=== PATIENT | male | born 1970 | race Caucasian/White ===

== ENCOUNTER 2020-07-20 18:27 | Observation (INO) | payer BC, SELFPAY ==
[2020-07-20] VITALS (22 sets, daily range): BP systolic 123–159; BP diastolic 70–91; PULSE 56–72; RESP 14–26; TEMP 36.2–36.6; O2SAT 95–98
--- NOTE | 2020-07-20 18:30 | RT.EKG_ITS ---
APPROVED REPORT Exam: Resting ECG Patient Location: E HR:61 bpm ECG Measurements Heart Rate 61 AXIS MI 156 P 63 QRSd 102 QRS -69 QT 382 T 48 QTc 385 Conclusion Sinus rhythm...normal P axis, V-rate 60- 99 Probable left atrial enlargement...P >50mS, <-0.10mV V1 LAD, consider left anterior fascicular block...axis(240,-40), S>R II III aVF ST elev, probable normal early repol pattern...ST elevation, age<55
--- NOTE | 2020-07-20 19:21 | ED.GENADUL_ITS ---
Discharge Plan Disposition Patient Disposition: [facility] INPATIENT Condition: Serious Discharge Details Clinical Impression: Paresthesia Primary Care Provider: Valentina Mojica ED Provider: True Perkins Home Meds and New Rx's Prescriptions: No Action No Known Home Meds RF: 0 Medical Decision Making 1928??50-year-old male presents with paresthesias involving his left lower ex tremity, left flank and arm and right thigh over the past 3-1/2 hours. No visual changes recently. No neck or back pain. No rash or known tick bites. Consider electrolyte abnormality. Plan to check labs. Consider tickborne disease and I will send a tick panel. This is unlikely CVA given crossed findings. MRI is not available tonight. I will obtain CT of the head. Patient does have dry mucous membranes he notes that he has been drinking much fluid today. I will give him IV fluid bolus LR 1 L. 2004 --screening ECG was reviewed and interpreted by me: Sinus rhythm 61bpm, normal axis, normal intervals. CT of the head was interpreted by radiology: No evidence for acute transcortical infarct, acute intracranial hemorrhage, or mass-effect. Patient reassessed and continues to have symptoms and now notes more numbness in his right foot. Consider Guillain-Horowitz?. 2011 -- Spoke with Dr. Ling and discussed ED presentation and course. She feels patient should be admitted on telemetry with concern for potential Guillain-Horowitz?. Monitor overnight and she will see the patient in the morning. 2016 -- I spoke with Dr. Francois, on-call hospitalist, discussed ED presentation and course. He will admit the patient. HPI General Mode of arrival: ambulatory . Date/Time Provider Initiated Documentation: 07/20/20 18:43 . Limitations to Documentation: no limitations . Information obtained by: patient . HPI Narrative: 50-year-old male presents with chief complaint of tingling numbness. Patient notes a tingling numbness in bilateral lower extremities left greater than right as well as left flank and left arm. Symptoms started about 3 and half hours ago and have persisted. Symptoms are moderate to severe in his left lower extremity feels like his leg is asleep and mild in his right lower extremity. No modifiers. He has no associated focal weakness. No headache. No visual changes. He has no neck pain or back pain. No fevers. No trauma. Patient does not recall any tick bites. Patient also notes generalized weakness over the past year. Related Data Home Medications Medication Instructions Recorded Confirmed Unknown [No Known Home Meds] 07/20/20 07/20/20 Allergies Allergy/AdvReac Type Severity Reaction Status Date / Time No Known Allergies Allergy Unverified 07/20/20 18:36 General Stated Complaint: CVA/TIA MIKAELA: 2 Review of Systems All systems reviewed & are unremarkable except as noted in HPI and below Constitutional Constitutional: Denies fever(s) Cardiovascular Cardiovascular: Denies chest pain and Denies dyspnea Respiratory Respiratory: Denies dyspnea Gastrointestinal Gastrointestinal: Denies abdominal pain Integumentary/Breasts Skin/Breast: Denies rash Neurologic Neurologic: Reports as per HPI [facility] Social History Smoking/Tobacco Use Status: Former Tobacco Use Alcohol Intake: current Alcohol Intake frequency: a few times a week Drug use: Daily Substance use type: marijuana Do you feel safe at home: Yes Do you feel safe in your relationship?: Yes Exam Const General: cooperative and no acute distress HENMT Head: normocephalic and atraumatic Mouth: moist mucous membranes Eyes Conjunctivae: normal conjunctivae Sclera: normal sclerae EOM: EOM intact bilaterally Neck Neck: trachea midline and supple Resp Auscultation: clear to auscultation bilaterally, no rales, no rhonchi and no wheezes Cardio Rate: regular rate and not tachycardic Rhythm: regular rhythm GI Palpation: soft, not firm, no guarding, no masses, not rigid and nontender Back/Spine/Pelvis Cervical Spine: No cervical spinal tenderness Thoracic/Lumbar Spine: thoracic and lumbar spine normal to inspection, No thoracic spinal tenderness and No lumbar spinal tenderness Skin General skin exam: no rashes or lesions noted Neuro General: patient alert, patient awake, patient oriented x3 and tone normal Cranial Nerves: CN's II-XI intact bilaterally Cognition: normal cognition Speech: speech normal Motor: strength 5/5 throughout Other: Diminished sensation to light touch entire left lower extremity, right thigh, and left arm compared to normal right arm Extrem General: no edema Psych Appearance: grossly normal Mental Status: mental status grossly normal Speech and Movement: speech and movement normal Course Vital Signs Vital signs: Vital Signs Temperature 36.6 C 07/20/20 18:32 Pulse 67 07/20/20 18:32 Respiratory Rate 22 07/20/20 18:32 Blood Pressure 156/87 H 07/20/20 18:32 Pulse Oximetry 98 07/20/20 18:32 Temperature 36.6 C 07/20/20 18:32 Temperature Source Temporal Artery Scan 07/20/20 18:32 Pulse 67 07/20/20 18:32 Respiratory Rate 16 07/20/20 18:41 Respiratory Effort 07/20/20 18:41 Respiratory Depth Normal 07/20/20 18:41 Respiratory Pattern Normal 07/20/20 18:41 Blood Pressure 156/87 H 07/20/20 18:32 Blood Pressure Position Sitting 07/20/20 18:32 Pulse Oximetry 98 07/20/20 18:32 Oxygen Delivery Method Room Air 07/20/20 18:32 Oxygen Flow Rate 0 07/20/20 18:32 Pain Level 8 07/20/20 18:32
[2020-07-20 19:23] LABS: Abs Immature Grans 0.03 10^3/uL (0.0-0.06); Absolute Basophil Count 0.05 10^3/uL (0.0-0.2); Absolute Lymphocyte Count 3.12 10^3/uL (1.2-3.4); Absolute Monocyte Count 0.81 10^3/uL (0.1-0.8); Basophils % 0.5; HCT 43.4 % (40.0-50.0); HGB 14.3 g/dL (13.5-17.5); Immature Grans % 0.3; Lymphocytes % 32.1; MCH 31.4 pg (27.0-33.0); MCHC 32.9 % (32.0-36.0); MCV 95.2 fL (80-95); MPV 9.3 fL (8.0-11.0); Monocytes % 8.3; Neutrophils % 57.8; Nucleated RBC 0 %; Platelet Count 327 10^3/uL (130-400); RBC 4.56 10^6/uL (4.36-5.78); RDW 12.5 % (11.8-14.1); RDW-SD 43.6 fL; WBC 9.71 10^3/uL (4.4-10.8)
--- NOTE | 2020-07-20 19:26 | DI.CT_ITS ---
EXAM: CT HEAD WO CLINICAL HISTORY: lr sided paresthesias, rt thigh paresthesia, 3 hrs. TECHNIQUE: Imaging Protocol: Axial computed tomography images with coronal and sagittal reformatted images were created and reviewed COMPARISON: No exams were available for comparison FINDINGS: Ventricles and Extra axial spaces: Normal in size and morphology for the patient's age. Hemorrhage: None. Cerebral parenchyma: Normal. Midline shift: None. Brainstem/Cerebellum: Normal. Calvarium: Normal. Visualized Paranasal sinuses/Mastoids: Left mastoid air cells are opacified. There is also opacifica tion of the middle ear, around the ossicles. No bony erosions are seen. There are mucous retention cysts versus polyps in the left maxillary sinus. Left medial antrectomy is seen. Soft Tissues: Unremarkable. IMPRESSION: Left maxillary sinus mucous retention cysts versus polyps. Opacified left mastoid air cells and midd le ear could represent cholesteatoma versus sequela otitis media. No acute intracranial process. RADIATION DOSE DELIVERED: 779.6mGy.cm Total DLP DATA REPOSITORY: All CT scans at this facility are submitted to the National Radiology Data Registry (NRDR) Dose Index Registry (DIR) with the [employer] (ACR). RADIATION OPTIMIZATION: All CT scans at this facility use at least one of these dose optimization te chniques: automated exposure control; mA and/or kV adjustment per patient size (includes targeted exa ms where dose is matched to clinical indication); or iterative reconstruction.
[2020-07-20] MEDS: Lactated Ringers 1,000 ML 1000 ML IV (19:33)
[2020-07-20] MEDS: Normal Saline Flush 10 ML SYR IVP (19:34)
[2020-07-20 19:35] LABS: ALT 27 U/L (16-63); AST 16 U/L (15-37); Albumin 4.2 g/dL (3.4-5.0); Alkaline Phosphatase 75 U/L (46-116); Anion Gap 8.1 mmol/L (3-11); BUN 14 mg/dL (7-18); Bilirubin, Total 0.4 mg/dL (0.2-1.0); CO2 25.9 mmol/L (21.0-32.0); CREATININE 0.83 mg/dL (0.70-1.30); Calcium 9.2 mg/dL (8.5-10.1); Chloride 101 mmol/L (98-107); Glucose 109 mg/dL (74-106); Potassium 3.7 mmol/L (3.5-5.1); Sodium 135 mmol/L (136-145); Total Protein 7.9 g/dL (6.4-8.2)
--- NOTE | 2020-07-20 19:35 | DI.VRAD_ITS ---
PROCEDURE INFORMATION: Exam: CT Head Without Contrast Exam date and time: 07/20/2020 7:14 PM Age: 50 years old Clinical indication: Numbness / parasthesia; Bilateral TECHNIQUE: Imaging protocol: Computed tomography of the head without contrast. Radiation optimization: All CT scans at this facility use at least one of these dose optimization techniques: automated exposure control; mA and/or kV adjustment per patient size (includes targeted exams where dose is matched to clinical indication); or iterative reconstruction. Other technique: STROKE PROTOCOL was implemented. COMPARISON: No relevant prior studies available. FINDINGS: Brain: No evidence for acute transcortical infarct. No mass effect or midline shift. No extra-axial collection. No acute intracranial hemorrhage. Basal cisterns are patent. Cerebral ventricles: No ventriculomegaly. Bones/joints: Unremarkable. No acute fracture. Paranasal sinuses: Polyp versus retention cyst within the left maxillary sinus. Mastoid air cells: Visualized mastoid air cells are well aerated. Soft tissues: Unremarkable. IMPRESSION: No evidence for acute transcortical infarct, acute intracranial hemorrhage, or mass effect. [facility]ian[facility]s Stroke Program Early CT Score (ASPECTS) = 10 Dictated and Authenticated by: Gagandeep Grande MD. Ordering:GUEVARA Biswas MD
--- NOTE | 2020-07-20 20:30 | DI.CT_ITS ---
EXAM: CT CERVICAL SPINE WO CLINICAL HISTORY: paresthesias. TECHNIQUE: Imaging Protocol: Axial computed tomography images with coronal and sagittal reformatted images were created and reviewed CONTRAST MATERIAL: Noncontrast COMPARISON: No exams were available for comparison FINDINGS: Bones: No fracture or dislocations are seen. The alignment of the cervical spine is normal including the cervicovertebral junction and cervicothoracic junction. C2-3: Minimal endplate osteophytes . C3-4: Minimal endplate osteophytes C4-5: Moderate disc space narrowing. Circumferentially projecting osteophytes causes moderate right and mild left neural foraminal narrowing. There is mild narrowing of the AP dimension of the central canal. C5-6: Moderate loss of disc height. Circumferentially projecting osteophytes causing severe bilatera l neural foraminal narrowing, greater on the right. Mild narrowing of the AP dimension of the centra l canal. C6-7: Minimal endplate osteophytes. No significant neural foraminal narrowing. C7-T1: Normal. Soft Tissues: The soft tissues of the neck are unremarkable. No large disk herniations are identified . IMPRESSION: Degenerative disc changes, greatest at C5-6, causing severe bilateral neural foraminal narrowing, gre ater on the right. RADIATION DOSE DELIVERED: 556.96mGy.cm Total DLP DATA REPOSITORY: All CT scans at this facility are submitted to the National Radiology Data Registry (NRDR) Dose Index Registry (DIR) with the [employer] (ACR). RADIATION OPTIMIZATION: All CT scans at this facility use at least one of these dose optimization te chniques: automated exposure control; mA and/or kV adjustment per patient size (includes targeted exa ms where dose is matched to clinical indication); or iterative reconstruction.
--- NOTE | 2020-07-20 20:50 | W.PM.HP.N ---
Date of service: 07/20/20 Time of Service: 20:50 Assessment and Plan Assessment and plan (1) Numbness: Status: Acute Assessment and plan: Unclear exactly how to characterize this but I think the bulk of the evidence would favor peripheral neuropathy. However the hypereflexia of LEs is notable as is the apparent differential loss of the several sensory modalities and there remains some concern for spinal (ie cervical) lesion. Will obtain CT neck. Pending this will plan on observation overnight and neuro consult in AM. Will update once CT done. History of Present Illness History of Present Illness Chief Complaint: numbness Narrative: 50 male w/o PMH. Here with rapidly progressing numbness, first LLE, then LUE and now distal RLE -- all over course of past 3-4 hours. No motor weakness. No recent illness of any kind. In ER CT head neg. Case reviewed with Neurology, concern for possible GBS, admitted for monitoring and further evaluation. Review of Systems All systems reviewed & are unremarkable except as noted in HPI and below PFSH Social History Smoking/Tobacco Use Status: Former Tobacco Use Alcohol Intake: current Alcohol Intake frequency: a few times a week Drug use: Daily Substance use type: marijuana Do you feel safe at home: Yes Do you feel safe in your relationship?: Yes Meds Home Medications and Allergies Home Medications Medication Instructions Recorded Confirmed Type Unknown [No Known Home Meds] 07/20/20 07/20/20 History Allergies Allergy/AdvReac Type Severity Reaction Status Date / Time No Known Allergies Allergy Unverified 07/20/20 18:36 Exam Narrative Exam Narrative: 134/71, 59, 36.6, 19, 97% RA. HEENT atraumatic; neck supple, no spinal tenderness; lungs clear; heart RRR w/o MRG; abdomen soft and NT; extremities w/o edema, pulses 2+/=; neuro: Ox3, fluent; CN PERRL, EOMI, ceja full, no facial asymmetry, motor 5/5 UEs/LEs, sensory decreased light touch entire LUE and LLe, and distal RLE; intact pin throughout, position sense intact, vibration somewhat inconsistent exam but seems diminished distal extremities; DTR 1+ UEs, 3+ LEs; toes downgoing Results Labs Result diagrams: 07/20/20 18:35 07/20/20 18:35 Labs: Laboratory Results - last 24 hr 07/20/20 07/20/20 18:35 18:35 WBC 9.71 RBC 4.56 Hgb 14.3 Hct 43.4 MCV 95.2 H MCH 31.4 MCHC 32.9 RDW 12.5 Plt Count 327 MPV 9.3 Immature Gran % 0.3 Neutrophils % 57.8 Lymphocytes % 32.1 Monocytes % 8.3 Eosinophils % 1.0 Basophils % 0.5 Nucleated RBC % 0 Absolute Neutrophils 5.60 Absolute Lymphocytes 3.12 Absolute Monocytes 0.81 H Absolute Eosinophils 0.10 Absolute Basophils 0.05 Sodium 135 L Potassium 3.7 Chloride 101 Carbon Dioxide 25.9 Anion Gap 8.1 BUN 14 Creatinine 0.83 Estimated GFR/1.73 m2 >= 60.00 Glucose 109 H Calcium 9.2 Magnesium 2.0 Total Bilirubin 0.4 AST 16 ALT 27 Alkaline Phosphatase 75 Total Protein 7.9 Albumin 4.2 Last Vital Signs Temp 36.6 C 07/20/20 18:32 Pulse 57 L 07/20/20 20:00 Resp 19 07/20/20 20:01 BP 134/71 07/20/20 20:00 Pulse Ox 97 07/20/20 20:01 COVID-19 Screening Have you,or household,traveled outside [place] in last 14 days?: Yes Had IN PERSON contact w/suspected or confirmed C-19 person: No
--- NOTE | 2020-07-20 21:13 | DI.VRAD_ITS ---
PROCEDURE INFORMATION: Exam: CT Cervical Spine Without Contrast Exam date and time: 07/20/2020 8:57 PM Age: 50 years old Clinical indication: Patient HX: Left sided numbness and right thigh numbness x 6 hours. Worsening. No recent trauma per PT TECHNIQUE: Imaging protocol: Computed tomography images of the cervical spine without contrast. Radiation optimization: All CT scans at this facility use at least one of these dose optimization techniques: automated exposure control; mA and/or kV adjustment per patient size (includes targeted exams where dose is matched to clinical indication); or iterative reconstruction. COMPARISON: No relevant prior studies available. FINDINGS: Vertebrae: No acute fracture or traumatic subluxation. No spondylolisthesis. The atlantooccipital and atlantoaxial articulations are intact. Facet joint alignments are maintained. Discs/Spinal canal/Neural foramina: Age-related degenerative disc disease. Multilevel degenerative changes of the cervical spine. Other bones/joints: Occipital condyles are intact. Prevertebral Space: No prevertebral soft tissue swelling. Soft tissues: Unremarkable. Lungs: Lung apices are normal. IMPRESSION: Multilevel degenerative changes of the cervical spine. Evaluation of the spinal canal is limited on this modality, especially within the lower cervical spine. Consider MRI for further evaluation. Dictated and Authenticated by: Gagandeep Grande MD. Ordering:LALO Marroquin MD
--- NOTE | 2020-07-21 | DI.MRI_ITS ---
EXAM: MR CERVICAL SPINE WO CLINICAL HISTORY: numbness TECHNIQUE: Multiplanar multisequence MRI of the cervical spine was performed without intravenous con trast. COMPARISON: CR LEFT KNEE 3 VIEW COMPLETE from 04/12/[address] CERVICAL SPINE WO from 07/20/2020 FINDINGS: BONES: Vertebral body heights are maintained. Intervertebral disc spaces are normal. Alignment is nor mal. Bone marrow signal intensity is within normal limits. CERVICAL CORD: Craniovertebral junction is unremarkable. The cervical cord is normal size. On the STI R sagittal sequence, there is a small focus of high signal at the C4-5 level. It is not definitely co nfirmed on remaining sequences and could represent artifact. Gradient echo axial sequence shows some motion artifact. SOFT TISSUES: Unremarkable. No ligamentous injury or paraspinal hematoma is seen. C2-3: Mild endplate osteophytes. Tiny right-sided disc protrusion. No significant neural foraminal narrowing or central canal stenosis. C3-4: Mild disc osteophytes. C4-5: Moderate loss of disc height and broad-based disc osteophytes causing bilateral neural foramina l encroachment and mild narrowing of the AP dimension of the central canal. No disc herniation is se en. C5-6: Moderate loss of disc height and broad-based disc osteophytes causing bilateral neural foramina l narrowing and mild narrowing of the AP dimension of the central canal. C6-7: Small endplate osteophytes. Posterior disc bulging effacing the anterior CSF space. No signif icant neural foraminal narrowing. C7-T1: No disc herniation or bulge is identified. IMPRESSION: Multilevel disc osteophytes causing bilateral neural foraminal encroachment and mild narrowing of the AP dimension of the canal. Posterior disc bulging is seen at C6-7. There is a tiny disc protrusion at C2-3 on the right. Question of abnormal high signal in the cervical cord at the C 4 5 level. DATA REPOSITORY:
[2020-07-21 03:24] VITALS: BP 120/68; PULSE 63; RESP 17; TEMP 37; O2SAT 98
[2020-07-21 07:40] VITALS: BP 142/83; PULSE 63; RESP 17; TEMP 36.6; O2SAT 99
[2020-07-21] MEDS: Normal Saline Flush 10 ML SYR IVP ×2 (08:11→10:26)
--- NOTE | 2020-07-21 08:14 | NCONE_ITS ---
Date of service: 07/21/20 Time of Service: 08:15 Assessment and Plan Assessment and plan (1) Myelopathy: Status: Acute (2) Numbness: Status: Acute Assessment and plan: Mr. Griffith is a 50-year-old, right-handed man who was admitted with progressive ascending numbness including the bilateral legs, perineum, left arm, and torso. His neurological exam was significant for diffuse sensory loss in the same distributions, denser in the left leg. He was diffusely hyperreflexic with bilateral Babinskis. He has no signs of illness, fever, chills, night sweats, etc. I am concerned about a spinal cord etiology and recommend an MRI cervical spine without contrast as further work-up. He should maintain C-spine precautions at this time. History of Present Illness History of Present Illness Chief Complaint: numbness Narrative: Handedness: right. HPI: Mr. Griffith is a healthy 50-year-old man who is a chronic cigarette smoker. He is on no chronic medications. He was admitted yesterday after developing progressive ascending numbness. His symptoms started around 3:30 PM while riding in the car. He first noticed numbness in his left thigh which then spread to involve his entire left leg. He then noticed symptoms spreading into the left torso and left arm and subsequently into the right leg. Overnight, he now has dense sensory loss from the waist down. He can no longer feel his perineum. He has not had any bowel or bladder incontinence but that is a concern of his. He has had no fevers, chills, or night sweats. He has not had any acute traumatic events. He has a history of neck pain off and on throughout the years which he attributes to a previous of biceps tendon injury. Work-up thus far has included a CT head which I was able to review personally and was unremarkable. He had a CT of his neck which I was also able to review. He has no acute findings but diffuse degenerative changes. Based on the CT, I a m worried about a C4-5 stenosis. Laboratory work-up was remarkable only for a sodium of 135. Consults Consult date: 07/21/20 Requesting physician: Ting Marie Review of Systems All systems reviewed & are unremarkable except as noted in HPI and below [facility] Medical History Smoker Tear of left biceps muscle Surgical History S/P arthroscopic knee surgery S/P myringotomy with insertion of tube S/P tonsillectomy S/P vasectomy Social History Smoking/Tobacco Use Status: Former Tobacco Use Alcohol Intake: current Alcohol Intake frequency: a few times a week Drug use: Daily Substance use type: marijuana Household members: spouse current occupation: [employer] Do you feel safe at home: Yes Do you feel safe in your relationship?: Yes Visit Medication and Allergies Active Medications Generic Name Dose Route Start Last Admin Trade Name Freq PRN Reason Stop Dose Admin IV Miscellaneous Supplies 1 each 07/20/20 19:15 Iv Access IV DIRECTED JASEN IV Miscellaneous Supplies 1 each 07/20/20 22:45 Iv Access IV DIRECTED JASEN Sodium Chloride 0 ml 07/20/20 19:10 07/21/20 08:11 Normal Saline Flush 10 Ml Syr IVP 10 ml PRN PRN Administration Sodium Chloride 0 ml 07/20/20 22:32 Normal Saline Flush 10 Ml Syr IVP PRN PRN Allergies No Known Allergies Allergy (Unverified 07/20/20 18:36) Exam Narrative Exam Narrative: Physical Exam: Gen: Patient of apparent stated age, NAD Head and face: no facial or cranial abnormalities Neck: Supple, no meningismus, no occipital tenderness CV: + S1, S2, RRR, no murmur Resp: CTA B/L Abd: soft, nontender, nondistended Ext: No edema. No clubbing or cyanosis. No bony deformity. Neuro Exam: Language: fluency, naming, repetition, and comprehension intact; Mental Status: AAOx3, current events intact, fund of knowledge intact; Speech: no dysarthria Cranial nerves: Funduscopy: not performed CN II: visual ceja intact CN III, IV, : extraocular movements intact, no nystagmus, pupils symmetric and reactive to light CN V: face sensation intact to LT and PP CN VII: no facial asymmetry noted CN VIII: hearing intact bilaterally CN IX, X: palate rises symmetrically CN XI: trapezius/SCM 5/5 bilaterally CN XII: protrudes tongue symmetrically Sensory: reduced LT and PP throughout bilateral LE and patchy in LUE; patchy PP sensory loss bilaterally on the back/torso; vibration and joint position absent in the left toe; Motor: bulk and tone intact. Fine motor movements intact bilaterally. No pronator drift. Strength 5/5 throughout including the deltoids, biceps, triceps, wrist extensors, knee flexors, knee extensors, ankle flexors, and ankle extensors. L hip flexor 4+/5, R 5/5. Reflexes: 2+ at the biceps, triceps, and brachioradialis; brisk at the patella bilaterally; 2+ R achilles and absent on the left; +bilateral Babinski; +bilateral [place]/Tromner; Coordination: FTN and HTS intact bilaterally Gait: deferred Results Last Vital Signs Temp 37.0 C 07/21/20 03:24 Pulse 63 07/21/20 03:24 Resp 17 07/21/20 03:24 BP 120/68 07/21/20 03:24 Pulse Ox 98 07/21/20 03:24 Labs Result diagrams: 07/20/20 18:35 07/20/20 18:35 Labs: Laboratory Results - last 24 hr 07/20/20 07/20/20 18:35 18:35 WBC 9.71 RBC 4.56 Hgb 14.3 Hct 43.4 MCV 95.2 H MCH 31.4 MCHC 32.9 RDW 12.5 Plt Count 327 MPV 9.3 Immature Gran % 0.3 Neutrophils % 57.8 Lymphocytes % 32.1 Monocytes % 8.3 Eosinophils % 1.0 Basophils % 0.5 Nucleated RBC % 0 Absolute Neutrophils 5.60 Absolute Lymphocytes 3.12 Absolute Monocytes 0.81 H Absolute Eosinophils 0.10 Absolute Basophils 0.05 Sodium 135 L Potassium 3.7 Chloride 101 Carbon Dioxide 25.9 Anion Gap 8.1 BUN 14 Creatinine 0.83 Estimated GFR/1.73 m2 >= 60.00 Glucose 109 H Calcium 9.2 Magnesium 2.0 Total Bilirubin 0.4 AST 16 ALT 27 Alkaline Phosphatase 75 Total Protein 7.9 Albumin 4.2
[2020-07-21 09:32] LABS: Calculated LDL 174 mg/dL (<100); Cholesterol 255 mg/dL (<200); HDL Cholesterol 60 mg/dL (40-60); Triglyceride 108 mg/dL (<150)
--- NOTE | 2020-07-21 09:39 | W.PM.PROGNOT ---
Date of Service Date of service: 07/21/20 Time of Service: 09:40 Assessment and Plan Assessment and plan (1) Numbness: Start date: 07/21/20 Start time: 09:44 Status: Acute Assessment and plan: Bilateral ascending numbness starting in feet, bilaterally worse on left than right up to torso. Rectal tone present Positive babinski and hyperreflexes more prominent to left than right Will obtain stat MRI of c-spine C-collar and cspine precautions Neurology following patient (2) Paresthesia: Start date: 07/21/20 Start time: 09:47 Status: Acute Assessment and plan: able to move all extremities (3) DVT prophylaxis: Start date: 07/21/20 Start time: 09:47 Status: Acute Assessment and plan: Heparin subcu (4) Discharge planning issues: Start date: 07/21/20 Start time: 09:48 Status: Acute Assessment and plan: He will likely need transfer to tertiary center. Above case discussed with Dr. Sewell who is in agreement. Subjective Subjective Patient reports: other Interval history since last seen: [place] numbness bilaterally greater on the left than the right from toes to torso. Rectal tone present. Placed in c-collar and follow c-spine precautions. Hyper reflexes and positive babinski bilaterally greater on the left. Stat c-spine MRI ordered. Denies CP, SOB. Exam Narrative Exam Narrative: Patient of apparent stated age, NAD Head and face: no facial or cranial abnormalities Neck: Supple, no meningismus, no occipital tenderness CV: + S1, S2, RRR, no murmur Resp: CTA B/L Abd: soft, nontender, nondistended Ext: No edema. No clubbing or cyanosis. No bony deformity. fluency, naming, repetition, and comprehension intact; Mental Status: AAOx3, current events intact, fund of knowledge intact; Speech: no dysarthria Cranial nerves: CN II: visual ceja intact CN III, IV, : extraocular movements intact, no nystagmus, pupils symmetric and reactive to light CN V: face sensation intact to LT and PP CN VII: no facial asymmetry noted CN VIII: hearing intact bilaterally CN IX, X: palate rises symmetrically CN XI: trapezius/SCM 5/5 bilaterally CN XII: protrudes tongue symmetrically Sensory: reduced LT and PP throughout bilateral LE and patchy in LUE; patchy PP sensory loss bilaterally on the back/torso; vibration and joint position absent in the left toe; Motor: bulk and tone intact. Fine motor movements intact bilaterally. No pronator drift. Strength 5/5 throughout including the deltoids, biceps, triceps, wrist extensors, knee flexors, knee extensors, ankle flexors, and ankle extensors. L hip flexor 4+/5, R 5/5. Reflexes: 2+ at the biceps, triceps, and brachioradialis; brisk at the patella bilaterally; 2+ R achilles and absent on the left; +bilateral Babinski; +bilateral [place]/Tromner; Coordination: FTN and HTS intact bilaterally Objective Last Vital Signs Temp 36.6 C 07/21/20 07:40 Pulse 63 07/21/20 07:40 Resp 17 07/21/20 07:40 BP 142/83 H 07/21/20 07:40 Pulse Ox 99 07/21/20 07:40 Laboratory Results - last 24 hr 07/20/20 07/20/20 07/20/20 18:35 18:35 18:35 WBC 9.71 RBC 4.56 Hgb 14.3 Hct 43.4 MCV 95.2 H MCH 31.4 MCHC 32.9 RDW 12.5 Plt Count 327 MPV 9.3 Immature Gran % 0.3 Neutrophils % 57.8 Lymphocytes % 32.1 Monocytes % 8.3 Eosinophils % 1.0 Basophils % 0.5 Nucleated RBC % 0 Absolute Neutrophils 5.60 Absolute Lymphocytes 3.12 Absolute Monocytes 0.81 H Absolute Eosinophils 0.10 Absolute Basophils 0.05 Sodium 135 L Potassium 3.7 Chloride 101 Carbon Dioxide 25.9 Anion Gap 8.1 BUN 14 Creatinine 0.83 Estimated GFR/1.73 m2 >= 60.00 Glucose 109 H Hemoglobin A1c 6.0 H Calcium 9.2 Magnesium 2.0 Total Bilirubin 0.4 AST 16 ALT 27 Alkaline Phosphatase 75 Total Protein 7.9 Albumin 4.2 Triglycerides 108 Total Cholesterol 255 H LDL Cholesterol, Calc 174 H HDL Cholesterol 60
[2020-07-21] MEDS: diazePAM 10 MG/2 ML SYR 5 MG IVP (10:22)
[2020-07-21] MEDS: Heparin 5,000 UNITS/ML VIAL 5000 UNITS SC (10:24)
[2020-07-21 11:30] VITALS: BP 142/77; PULSE 62; RESP 18; TEMP 36.8; O2SAT 97
--- NOTE | 2020-07-21 11:55 | PDOC.CMIN ---
Care Management Initial Assess REASON FOR HOSPITALIZATION:: Numbness, Paresthesia PAST MEDICAL HISTORY/PAST SURGICAL HISTORY:: smoker, tear of left biceps muscle, arthroscopic knee surgery, myringotomy with insertion of tube, tonsillectomy, vasectomy PREVIOUS FUNCTIONAL STATUS/SOCIAL/FAMILY SUPPORTS:: Wiliam resides in [place], [place] with his , Jelani. He works at [employer] in [place] and is independent at baseline in the community. CURRENT FUNCTIONAL STATUS:: Wiliam continues to experience numbness.
[2020-07-21 12:17] VITALS: BP 146/85; PULSE 51; RESP 16; TEMP 36.1; O2SAT 98
--- NOTE | 2020-07-21 12:26 | W.PM.DS.N ---
Date of service: 07/21/20 Time of Service: 12:27 DS: Diagnosis Discharge Diagnosis (1) Numbness: Start date: 07/21/20 Start time: 12:27 Status: Acute Asessment and Plan: Patient with ascending numbness, cervical spinal cord compression brought on by hitting head at home with whip supa. Ascending numbness started last night. He has motor function but numbness that is up to torso, worse on left, with hyperreflexia and positive babinski. Dr. Tai evaluated patient and MRI, found to have compression to c4-c5 needs immedicate intervention by neurosurgery therefore needs transfer to tertiary center. He has been accepted at [facility], he will be going via [facility] C-collar in place. Spine precautions at all times (2) Cervical spinal cord compression: Start date: 07/21/20 Start time: 12:33 Status: Acute Asessment and Plan: Found by imaging. Reviewed by neurologist. Transfer to neurosurgery Above case discussed with Dr. Sewell who is in agreement. Discharge Plan Disposition Patient Disposition: [facility] Condition: Serious Discharge Details Reason For Visit: NUMBNESS, PARESTHESIA Admit Date/Time: 07/20/20 22:32 Admit Provider: Anthony Francois Attending Provider: Anthony Francois Primary Care Provider: Valentina Mojica Hospital Course Hospital Course: 50 y.o male with really no PMH admitted from [facility] ED overnight after having ascending numbness to bilateral lower extremities up to torso that continues to ascend. Left is more prominent then right. He does have hyperreflexes bilaterally worse on left with positive babinski bilaterally worse on left. Motor function intact. No pain. Evaluated by neurology with stat MRI of c-spine revealing cord compression to c4-c5. At first unsure how this injury occurred as there was no falls or trauma patient could think of, however he does state that he bumped his head the other day standing up on a ceiling causing his head to jerk forward, with then proceeding left arm numbness that went away until symptoms returned yesterday. He is in a c-collar with spine precautions. He is being transferred to [facility] for further management of his symptoms. He has been accepted to [facility] he will be transferred via [facility]. Home Meds and New Rx's Prescriptions: No Action No Known Home Meds RF: 0 Discharge Instructions Additional Instructions: Transfer to teritiary Activity:: Activity as Tolerated Equipment/Supplies:: cervical collar in place Diet:: NPO Discharge Orders Discharge Orders: Discharge Order (Routine); Ordered 07/21/20 Ordered By: Ting Marie DS: Summary Status at Discharge Functional status at discharge: bed bound Overall status at discharge: patient is not back to baseline Mental Status: mental status grossly normal Speech and Movement: speech and movement normal Mood: congruent mood Affect: normal affect Exam Narrative Exam Narrative: Patient of apparent stated age, NAD Head and face: no facial or cranial abnormalities Neck: Supple, no meningismus, no occipital tenderness CV: + S1, S2, RRR, no murmur Resp: CTA B/L Abd: soft, nontender, nondistended Ext: No edema. No clubbing or cyanosis. No bony deformity. fluency, naming, repetition, and comprehension intact; Mental Status: AAOx3, current events intact, fund of knowledge intact; Speech: no dysarthria Cranial nerves: CN II: visual ceja intact CN III, IV, : extraocular movements intact, no nystagmus, pupils symmetric and reactive to light CN V: face sensation intact to LT and PP CN VII: no facial asymmetry noted CN VIII: hearing intact bilaterally CN IX, X: palate rises symmetrically CN XI: trapezius/SCM 5/5 bilaterally CN XII: protrudes tongue symmetrically Sensory: reduced LT and PP throughout bilateral LE and patchy in LUE; patchy PP sensory loss bilaterally on the back/torso; vibration and joint position absent in the left toe; Motor: bulk and tone intact. Fine motor movements intact bilaterally. No pronator drift. Strength 5/5 throughout including the deltoids, biceps, triceps, wrist extensors, knee flexors, knee extensors, ankle flexors, and ankle extensors. L hip flexor 4+/5, R 5/5. Reflexes: 2+ at the biceps, triceps, and brachioradialis; brisk at the patella bilaterally; 2+ R achilles and absent on the left; +bilateral Babinski; +bilateral [place]/Tromner; Coordination: FTN and HTS intact bilaterally Psych Mental Status: mental status grossly normal Speech and Movement: speech and movement normal Mood: congruent mood Affect: normal affect DS: Data Vitals/I&O Vitals and I&O: Vital Signs Temperature 36.1 C L 07/21/20 12:17 Temperature Source Tympanic 07/21/20 12:17 Pulse 51 L 07/21/20 12:17 Pulse Rhythm Regular 07/21/20 07:45 Pulse 63 07/20/20 20:45 Respiratory Rate 16 07/21/20 12:17 Respiratory Effort Non-Labored 07/21/20 07:45 Respiratory Depth Normal 07/21/20 07:45 Respiratory Pattern Normal 07/21/20 07:45 Blood Pressure 146/85 H 07/21/20 12:17 Blood Pressure Mean 94 07/20/20 20:45 Blood Pressure Position Sitting 07/20/20 18:32 Pulse Oximetry 98 07/21/20 12:17 Oxygen Delivery Method Room Air 07/21/20 12:17 Oxygen Flow Rate 0 07/21/20 12:17 Pain Level 0 07/21/20 12:17 Intake & Output 07/20/20 07/21/20 07/21/20 23:59 11:59 23:59 Intake Total 1000 / 1000 Output Total 300 / 300 Balance 700 / 700 Weight 85 kg Intake: IV 1000 / 1000 Output: Urine 300 / 300 Other: Urine Color Yellow Urine Appearance Clear Urine Odor None Voiding Methods Urinal Data Completed and Pending Completed studies during hospitalization [Text1]: OMPARISON: CT CT CERVICAL SPINE WO from 07/20/2020 FINDINGS: BONES: Vertebral body heights are maintained. Intervertebral disc spaces are normal. Alignment is normal. Bone marrow signal intensity is within normal limits. CERVICAL CORD: Craniovertebral junction is unremarkable. The cervical cord is normal size and signal intensity. SOFT TISSUES: Unremarkable. C2-3: Mild endplate osteophytes. Tiny right-sided disc protrusion. No significant neural foraminal narrowing or central canal stenosis. C3-4: Mild disc osteophytes. C4-5: Moderate loss of disc height and broad-based disc osteophytes causing bilateral neural foraminal encroachment and mild narrowing of the AP dimension of the central canal. No disc herniation is seen. C5-6: Moderate loss of disc height and broad-based disc osteophytes causing bilateral neural foraminal narrowing and mild narrowing of the AP dimension of the central canal. C6-7: Small endplate osteophytes. Posterior disc bulging effacing the anterior CSF space. No significant neural foraminal narrowing. C7-T1: No disc herniation or bulge is identified. IMPRESSION: Multilevel disc osteophytes causing bilateral neural foraminal encroachment and mild narrowing of the AP dimension of the canal. Posterior disc bulging is seen at C6-7. There is a tiny disc protrusion at C2-3 on the right. COMPARISON: No relevant prior studies available. FINDINGS: Vertebrae: No acute fracture or traumatic subluxation. No spondylolisthesis. The atlantooccipital and atlantoaxial articulations are intact. Facet joint alignments are maintained. Discs/Spinal canal/Neural foramina: Age-related degenerative disc disease. Multilevel degenerative changes of the cervical spine. Other bones/joints: Occipital condyles are intact. Prevertebral Space: No prevertebral soft tissue swelling. Soft tissues: Unremarkable. Lungs: Lung apices are normal. IMPRESSION: Multilevel degenerative changes of the cervical spine. Evaluation of the spinal canal is limited on this modality, especially within the lower cervical spine. Consider MRI for further evaluation. FINDINGS: Bones: No fracture or dislocations are seen. The alignment of the cervical spine is normal including the cervicovertebral junction and cervicothoracic junction. C2-3: Minimal endplate osteophytes . C3-4: Minimal endplate osteophytes C4-5: Moderate disc space narrowing. Circumferentially projecting osteophytes causes moderate right and mild left neural foraminal narrowing. There is mild narrowing of the AP dimension of the central canal. C5-6: Moderate loss of disc height. Circumferentially projecting osteophytes causing severe bilateral neural foraminal narrowing, greater on the right. Mild narrowing of the AP dimension of the central canal. C6-7: Minimal endplate osteophytes. No significant neural foraminal narrowing. C7-T1: Normal. Soft Tissues: The soft tissues of the neck are unremarkable. No large disk herniations are identified. IMPRESSION: Degenerative disc changes, greatest at C5-6, causing severe bilateral neural foraminal narrowing, greater on the right. Labs on day of discharge: Labs from last 24 hours 07/20/20 07/20/20 07/20/20 22:30 18:35 18:35 WBC 9.71 RBC 4.56 Hgb 14.3 Hct 43.4 MCV 95.2 H MCH 31.4 MCHC 32.9 RDW 12.5 Plt Count 327 MPV 9.3 Immature Gran % 0.3 Neutrophils % 57.8 Lymphocytes % 32.1 Monocytes % 8.3 Eosinophils % 1.0 Basophils % 0.5 Nucleated RBC % 0 Absolute Neutrophils 5.60 Absolute Lymphocytes 3.12 Absolute Monocytes 0.81 H Absolute Eosinophils 0.10 Absolute Basophils 0.05 Sodium Potassium Chloride Carbon Dioxide Anion Gap BUN Creatinine Estimated GFR/1.73 m2 Glucose Hemoglobin A1c 6.0 H Calcium Magnesium Total Bilirubin AST ALT Alkaline Phosphatase Total Protein Albumin Triglycerides Total Cholesterol LDL Cholesterol, Calc HDL Cholesterol A.phagocytophil DNA PCR B. divergens/MO-1 PCR Babesia duncani (PCR) Babesia microti DNA PCR Borrelia (PCR) Lyme Disease Antibody COVID-19 PCR Pending Nasopharyn COVID-19 PCR Pending E.chaffeensis DNA (PCR) E.ewingii/canis DNA PCR E. muris-like DNA (PCR) Ref Test Perform Site Pending 07/20/20 07/20/20 18:35 18:35 WBC RBC Hgb Hct MCV MCH MCHC RDW Plt Count MPV Immature Gran % Neutrophils % Lymphocytes % Monocytes % Eosinophils % Basophils % Nucleated RBC % Absolute Neutrophils Absolute Lymphocytes Absolute Monocytes Absolute Eosinophils Absolute Basophils Sodium 135 L Potassium 3.7 Chloride 101 Carbon Dioxide 25.9 Anion Gap 8.1 BUN 14 Creatinine 0.83 Estimated GFR/1.73 m2 >= 60.00 Glucose 109 H Hemoglobin A1c Calcium 9.2 Magnesium 2.0 Total Bilirubin 0.4 AST 16 ALT 27 Alkaline Phosphatase 75 Total Protein 7.9 Albumin 4.2 Triglycerides 108 Total Cholesterol 255 H LDL Cholesterol, Calc 174 H HDL Cholesterol 60 A.phagocytophil DNA PCR Pending B. divergens/MO-1 PCR Pending Babesia duncani (PCR) Pending Babesia microti DNA PCR Pending Borrelia (PCR) Pending Lyme Disease Antibody Pending COVID-19 PCR Nasopharyn COVID-19 PCR E.chaffeensis DNA (PCR) Pending E.ewingii/canis DNA PCR Pending E. muris-like DNA (PCR) Pending Ref Test Perform Site [facility] Medical History Smoker Tear of left biceps muscle Surgical History S/P arthroscopic knee surgery S/P myringotomy with insertion of tube S/P tonsillectomy S/P vasectomy Social History Smoking/Tobacco Use Status: Former Tobacco Use Alcohol Intake: current Alcohol Intake frequency: a few times a week Drug use: Daily Substance use type: marijuana Household members: spouse current occupation: [employer] Do you feel safe at home: Yes Do you feel safe in your relationship?: Yes
--- NOTE | 2020-07-21 14:28 | NUR.NOTE ---
Nursing Note: Called [facility] ED and gave full report to KEVAN Rolle. Aquilino reported no further questions. Reported that the patient just left our facility by flight.
--- NOTE | 2020-07-21 14:32 | NUR.NOTE ---
Nursing Note: at 10:00 AM cervical collar was put into place on patient - verbal order from IVONNE Maguire. Spinal precautions maintained.
--- NOTE | 2020-07-21 14:34 | CHAPLAIN ---
I had a brief visit with Wiliam and his . He was anxiously awaiting test results after an MRI. I explained my role and offered support.
[2020-07-21 20:22] LABS: COVID-19 RT-PCR UVMMC Result Negative (Negative)
[2020-07-22 10:53] LABS: Lyme Ab w Rflx to Lyme Confirm Negative (Negative)
[2020-07-22 23:32] LABS: Anaplasma phagocytophilum Negative (Negative); B. miyamotoi PCR Negative (Negative); Babesia divergens/MO-1 Negative (Negative); Babesia duncani Negative (Negative); Babesia microti Negative (Negative); Ehrlichia chaffeensis Negative (Negative); Ehrlichia ewingii/canis Negative (Negative); Ehrlichia muris eauclairensis Negative (Negative)
== END 2020-07-21 14:17 ==
LOC: ER 22:38 → MS 23:01
PROVIDERS: Admitting Provider General Practice; Emergency Provider Student in an Organized Health Care Education/Training Program; PCP Internal Medicine; Visit Provider General Practice
DX: S14.154A Other incomplete lesion at C4 level of cervical spinal cord, initial encounter (principal); W19.XXXA Unspecified fall, initial encounter; R20.0 Anesthesia of skin; G62.9 Polyneuropathy, unspecified; M47.12 Other spondylosis with myelopathy, cervical region; Z87.891 Personal history of nicotine dependence; Z11.59 Encounter for screening for other viral diseases
CPT/HCPCS: 36415; 36416; 80053; 80061; 82962; 87798; 93005; 96360; 99222; 99223; 99226; 99239; 99285; U0003; 70450; 72125; 72141; 83036; 83735; 85025; 86618; 93010; 99217; 99218; 99284; G0378; J1644; J3360; L0172

== ENCOUNTER 2021-07-26 19:04 | Emergency (ER) | payer BC, SELFPAY ==
[2021-07-26 19:09] VITALS: BP 153/71; PULSE 65; RESP 20; TEMP 36.4; O2SAT 97
[2021-07-26 19:14] VITALS: RESP 19
--- NOTE | 2021-07-26 19:16 | ED.GENADUL_ITS ---
Discharge Plan Disposition Patient Disposition: HOME Condition: Stable Discharge Details Clinical Impression: Tick bite Primary Care Provider: Valentina Mojica ED Provider: Katharina Salguero Home Meds and New Rx's Prescriptions: Continued gabapentin 300 mg capsule 300 mg PO TID RF: 0 Discharge Instructions Instructions: Tick Bite (ED) Additional Instructions: your have been given a prophylactic dose of doxycycline 200 mg oral once. there is no further antibiotics needed at this time Referrals: Valentina Mojica [Primary Care Provider] - Medical Decision Making tick removed prior to arrival, was in [place] over the weekend hunting (3 days ago) no rash consistent with erythema migrans. will treat prophylactic with doxycycline 200mg po x1 HPI General Mode of arrival: ambulatory . Date/Time Provider Initiated Documentation: 07/26/21 19:04 . Limitations to Documentation: no limitations . Information obtained by: patient . HPI Narrative: this is a 51 year old male who's removed a tick from his left axilla area, they figure it was likely embedded for about 3 days. he has had no fevers or issues, he had not noticed it. there was approx 1 cm of erythema surrounding bite, no bullseye appearance or erythema migrans noted. Related Data Home Medications Medication Instructions Recorded Confirmed gabapentin 300 mg PO TID 07/26/21 07/26/21 Allergies Allergy/AdvReac Type Severity Reaction Status Date / Time No Known Allergies Allergy Unverified 07/26/21 19:12 General Stated Complaint: [facility] MIKAELA: 4 Review of Systems All systems reviewed & are unremarkable except as noted in HPI and below Constitutional Constitutional: Denies fever(s) Integumentary/Breasts Skin/Breast: Reports sores (small puncture wound with surrounding erythema consistent with tick removal) [facility] Medical History Smoker Tear of left biceps muscle Surgical History S/P arthroscopic knee surgery S/P myringotomy with insertion of tube S/P tonsillectomy S/P vasectomy Social History Smoking/Tobacco Use Status: Former Tobacco Use Smoking risk assessment performed?: Yes Alcohol Intake: current Alcohol Intake frequency: a few times a week Drug use: Daily Substance use type: marijuana Household members: spouse current occupation: [employer] Do you feel safe at home: Yes Do you feel safe in your relationship?: Yes Exam Const General: cooperative, healthy appearing, comfortable and no acute distress Nutritional Appearance: average body habitus Orientation: alert, awake and oriented x3 HENMT Head: normal to inspection, normocephalic and atraumatic Resp Effort & Inspection: normal respiratory effort Cardio Jugular venous pressure: other (well perfused) Skin Lesions: lesion noted (puncture wound consistent with tick removal) Extrem General: normal to inspection and full ROM Course Vital Signs Vital signs: Vital Signs Temperature 36.4 C L 07/26/21 19:09 Pulse 65 07/26/21 19:09 Respiratory Rate 20 07/26/21 19:09 Blood Pressure 153/71 H 07/26/21 19:09 Pulse Oximetry 97 07/26/21 19:09 Temperature 36.4 C L 07/26/21 19:09 Temperature Source Temporal Artery Scan 07/26/21 19:09 Pulse 65 07/26/21 19:09 Respiratory Rate 19 07/26/21 19:14 Respiratory Effort 07/26/21 19:14 Respiratory Depth Normal 07/26/21 19:14 Respiratory Pattern Normal 07/26/21 19:14 Blood Pressure 153/71 H 07/26/21 19:09 Blood Pressure Position Sitting 07/26/21 19:09 Pulse Oximetry 97 07/26/21 19:09 Oxygen Delivery Method Room Air 07/26/21 19:09 Oxygen Flow Rate 0 07/26/21 19:09 Pain Level 0 07/26/21 19:09
[2021-07-26] MEDS: Doxycycline Hyclate 100 MG CAP 200 MG PO (19:36)
== END 2021-07-26 19:39 | disposition home or self-care (01) ==
PROVIDERS: Emergency Provider Nurse Practitioner Acute Care; PCP Internal Medicine
DX: S40.862A Insect bite (nonvenomous) of left upper arm, initial encounter (principal); W57.XXXA Bitten or stung by nonvenomous insect and other nonvenomous arthropods, initial encounter
CPT/HCPCS: 99283

== ENCOUNTER 2024-05-02 09:17 | Emergency (ER) | payer BC, SELFPAY ==
[2024-05-02 09:21] VITALS: BP 157/94; PULSE 56; RESP 14; TEMP 36.9; O2SAT 98
--- NOTE | 2024-05-02 09:54 | W.ED.GENAD ---
Discharge Plan Disposition Patient Disposition: Home Condition: Good Discharge Details Clinical Impression: Muscle spasm, Acute lumbar back pain Primary Care Provider: Valentina Mojica ED Provider: Lexie Currie Home Meds and New Rx's Prescriptions: New methocarbamol 750 mg tablet 1,500 mg PO TID Qty: 16 0RF Discharge Instructions Instructions: Low Back Pain ED, Muscle Spasm ED Additional Instructions: Your history and exam is most concerning for muscle spasm along the right side of your lower back. Please encourage hydration. Please encourage gentle mobility and ambulation. You may continue with the anti-inflammatories please take as directed on the packaging. You may augment this with Tylenol, max of 4000 mg/day. You may also use the methocarbamol as prescribed. This is a muscle relaxer and is potentially sedating. Please do not drive or drink alcohol while using this medication and take only as directed. I will also attach a referral to physical therapy. Please call to schedule follow-up appointment. If you develop any weakness, sensation changes, change in bowel or bladder habits, fevers or other new/worsening symptoms seek care urgently once again. Otherwise, please follow-up with primary care in 1 week for reevaluation, Stand Alone Forms: Physical Therapy Referral Referrals: Valentina Mojica [Primary Care Provider] - Discharge Data Discharge Date/Time-TO BE ENTERED AT DEPARTURE: 05/02/24 10:08 HPI General Mode of arrival: ambulatory. Date/Time Provider Initiated Documentation: 05/02/24 09:21. Limitations to Documentation: no limitations. Information obtained by: patient, family, RN notes reviewed and old records reviewed (reviewed notes from initial injury in 2019 and more recent PT). History of Present Illness 53 year old M presents to the emergency department with the chief complaint of right sided lower back pain, described as severe, with intensity rated at 10. Quality is described as stabbing, and is localized to the back. Patient reports no radiation. Patient started experiencing this day(s) and it has been constant. Immobilization improves symptom(s), Movement worsens symptoms . Patient notes no other symptoms.. Patient did receive the following treatments prior to arrival, NSAID (aleve) Related Data Home Medications ?Medication ?Instructions ?Recorded ?Confirmed methocarbamol 750 mg tablet 1,500 mg (2 x 750 mg) PO TID #16 05/02/24 tabs Previous Rx's ?Medication ?Instructions ?Recorded methocarbamol 750 mg tablet 1,500 mg (2 x 750 mg) PO TID #16 05/02/24 tabs Allergies Allergy/AdvReac Type Severity Reaction Status Date / Time No Known Allergies Allergy Unverified 05/02/24 09:24 General Stated Complaint: Nk/Back Pain MIKAELA: 4 Review of Systems Constitutional Constitutional: Reports as per HPI, Denies chills, Denies fever(s), Denies frequent falls and Denies headache(s) ENT Ears, Nose, Mouth, and Throat: Denies headache(s) Cardiovascular Cardiovascular: Denies chest pain, Denies dyspnea and Denies dyspnea on exertion Respiratory Respiratory: Denies cough, Denies dyspnea and Denies dyspnea on exertion Gastrointestinal Gastrointestinal: Denies abdominal pain, Denies change in bowel habits and Denies fecal incontinence Genitourinary Genitourinary: Reports as per HPI, Denies urinary hesitancy and Denies urinary incontinence Musculoskeletal Musculoskeletal: Reports as per HPI, Reports back pain, Denies muscle weakness, Denies radiating pain into limb, Reports stiffness and Denies tingling Integumentary/Breasts Skin/Breast: Reports as per HPI and Denies rash Neurologic Neurologic: Reports as per HPI, Denies frequent falls, Denies headache(s), Denies localized weakness, Denies radicular pain and Denies tingling Exam Const General: cooperative, healthy appearing, comfortable, no acute distress, well developed and well groomed Nutritional Appearance: average body habitus and well nourished Orientation: alert and awake Eyes General: appearance normal, both eyes and all related structures Resp Effort & Inspection: normal respiratory effort and able to speak in complete sentences Auscultation: clear to auscultation bilaterally Cardio Heart Sounds: S1 normal and S2 normal GI Inspection: normal to inspection Palpation: soft, no hepatosplenomegaly and nontender Back/Spine/Pelvis Back: no CVA tenderness Cervical Spine: No cervical ROM normal (hx of fusion) Thoracic/Lumbar Spine: thoracic and lumbar spine normal to inspection, thoraco-lumbar ROM normal (pain with extension and when getting up from forward flexion), pain with thoraco-lumbar ROM (no pain with rotation or extension), No paraspinal tenderness, No thoraco-lumbar ROM limited, thoraco-lumbar spasm (right sided lumbar) and No thoracic spinal tenderness Pelvis: no pain with anterior-posterior compression Skin General skin exam: no rashes or lesions noted Neuro General: patient alert and patient awake Cognition: normal cognition Speech: speech normal Gait: normal gait Motor: muscle tone normal throughout, strength 5/5 throughout, no movement abnormalities noted and no fasciculations Sensory Exam: no sensory deficits noted (no saddle paresthesias) DTR's: Rt Patellar: 2+ and Lt Patellar: 2+ Extrem General: normal to inspection, full ROM, capillary refill normal, no joint enlargement, no pedal edema and normal gait Course Vital Signs Vital signs: Vital Signs Temperature 36.9 C 05/02/24 09:21 Pulse 56 L 05/02/24 09:21 Respiratory Rate 14 05/02/24 09:21 Blood Pressure 157/94 H 05/02/24 09:21 Pulse Oximetry 98 05/02/24 09:21 Temperature 36.9 C 05/02/24 09:21 Temperature Source Temporal Artery Scan 05/02/24 09:21 Pulse 56 L 05/02/24 09:21 Respiratory Rate 14 05/02/24 09:21 Respiratory Effort Normal 05/02/24 09:24 Blood Pressure 157/94 H 05/02/24 09:21 Pulse Oximetry 98 05/02/24 09:21 Oxygen Delivery Method Room Air 05/02/24 09:21 Oxygen Flow Rate 0 05/02/24 09:21 Pain Level 10 05/02/24 09:25 Medical Decision Making Patient is a pleasant 53-year-old male, brought in by his , with past medical history significant for C4-C5 compression fracture leading to chronic neurological deficits, presenting today with chief complaint of right-sided lower back pain. He reports the pain began a few days ago and has progressively been increasing. He states that he has been laying down at home and has not been up or moving around secondary to the pain. He also reports that he was carrying heavy buckets of water on the right side when the pain began. Denies any fall or injury. While he does have some chronic numbness, no change or escalation of this. Has not noted any weakness. No change in bowel or bladder habits. Denies any fever. Had surgery on c-spine in 2019. On exam, patient appears nontoxic. He does appear uncomfortable with movement and is preferring to sit in a higher seated chair. He is neurologically intact. Intact distal pulses. No saddle paresthesias. No abdominal pain. He has no pain with palpation over the spine itself but pain more towards the right that radiates out towards the right lateral aspect of the lower leg. No CVA tenderness. Range of motion is intact. He does have some discomfort with rotation particular to the right but this is not fully intact. However, he has significant pain when going from a flexed position to back up or right. Also experiences pain from sitting to standing position. His exam and history is most consistent with muscle spasm. I not see any indication to obtain imaging at this time. He is not having any bony tenderness nor did the patient have any type of trauma. He has been still for the past few days which is likely exacerbating muscle spasms. We discussed that need to get up and move to loosen the muscles. Also encouraged hydration. He has been using anti-inflammatories which have alleviated some of his discomfort. Encouraged that he continue with this. We did discuss safe dosing. Will also encourage him to use an acetaminophen. Will prescribe short course of muscle relaxers. He is aware of the side effects of these medications and safety concerns. Also encouraged topical options, heat, massage. Will refer to physical therapy. He is gone with PT in the past and which has worked well for his back although he is only ever gone for neck issues historically. Encouraged topical pain management as well. Encouraged close f/u. Return precautions discussed. All of his questions adn concerns were addressed, he is in agreement with this plan. Quality:[facility] Health Related Social Needs: No Data to Display PFSH All Active Problems (Updated 05/02/24 @ 09:57 by MARINE Salinas) Acute lumbar back pain (Acute) Muscle spasm (Acute) Tick bite (Acute) Cervical spinal cord compression (Acute) Discharge planning issues (Acute) DVT prophylaxis (Acute) Myelopathy (Acute) Numbness (Acute) Paresthesia (Acute) Medical History Smoker Tear of left biceps muscle Surgical History S/P arthroscopic knee surgery S/P myringotomy with insertion of tube S/P tonsillectomy S/P vasectomy Social History Smoking/Tobacco Use Status: Former Tobacco Use Smoking risk assessment performed?: Yes Alcohol Intake: current Alcohol Intake frequency: a few times a week Drug use: Daily Substance use type: marijuana Household members: spouse current occupation: [employer] Do you feel safe at home: Yes Do you feel safe in your relationship?: Yes PAWSS Have you Been Recently Intoxicated or Drunk Within the Last 30 days?: No Have you Ever Experienced Previous Episodes of Alcohol Withdrawal?: No Have you ever Experienced Withdrawal Seizures?: No Have you ever Experienced Delirium Tremens(DT)s?: No Have you ever undergone Alcohol Rehabilitation Treatment (i.e, inpt ot outpatient treatment programs)?: No Have you ever Experienced Blackouts?: No Have you ever Combined Alcohol with other Downers within the last 90 days?: No Have you ever Combined Alcohol with any other Substance of Abuse during the last 90 days?: No Result: 0
[2024-05-02] MEDS: Acetaminophen 500 MG TAB 1000 MG PO (09:59)
[2024-05-02] MEDS: Lidocaine 5% Patch 1 PATCH TP (09:59)
[2024-05-02] MEDS: Methocarbamol 750 MG TAB 1500 MG PO (10:00)
== END 2024-05-02 10:08 | disposition home or self-care (01) ==
LOC: ER 10:02
PROVIDERS: Emergency Provider Physician Assistant; PCP Internal Medicine
DX: M54.50 Low back pain, unspecified (principal); M62.838 Other muscle spasm
CPT/HCPCS: 99283

== ENCOUNTER 2025-06-23 18:30 | Emergency (ER) | payer BC, SELFPAY ==
[2025-06-23 18:32] VITALS: BP 130/70; PULSE 77; RESP 18; TEMP 36.1; O2SAT 98
--- NOTE | 2025-06-23 18:51 | ED.GENADUL_ITS ---
Discharge Plan Disposition Patient Disposition: Home Discharge Details Clinical Impression: Cellulitis of left leg Primary Care Provider: Valentina Mojica ED Provider: Aquilino Urias Home Meds and New Rx's Prescriptions: New cephalexin 500 mg capsule 500 mg PO QID 5 Days Qty: 20 0RF Discharge Instructions Additional Instructions: You are seen in the emergency department for your skin infection. You have no signs of an abscess at the moment. Please take these antibiotics as directed. As we discussed, please return to the emergency department if you develop worsening signs of infection or any fevers nausea or vomiting or if you have any other concerns. Otherwise please follow-up as needed with your primary care provider next week. Discharge Data Discharge Date/Time-TO BE ENTERED AT DEPARTURE: 06/23/25 19:24 HPI General Date/Time Provider Initiated Documentation: 06/23/25 18:48 . HPI Narrative: MDM This is a quite well-appearing afebrile and not tachycardic 55-year-old male with left proximal thigh erythema warmth and tenderness concerning for cellulitis given cobblestoning on ultrasound for which patient will receive course of cephalexin. No pain out of proportion to suggest necrotizing soft tissue infection. No fluctuance to suggest abscess. No proximal thigh tenderness nor palpable cords to suggest DVT so I did not feel the patient requires a duplex study nor would be a candidate for anticoagulation. No significant trauma to the thigh to suggest benefit from radiographs. Given no abscess my suspicion was lower for MRSA so I did not feel patient required trimethoprim/sulfamethoxazole. Left foot warm and well-perfused so I am not concerned for critical limb ischemia so I do not feel the patient requires an angiogram of his abdomen pelvis with runoffs. His vital signs are not consistent with sepsis and he did not endorse systemic symptoms so I did not feel that the risks of broad-spectrum antibiotics and blood cultures outweigh the benefits. Patient and I discussed that he should return to the ED if he developed any systemic symptoms fevers chills nausea or vomiting. He received his first dose of cephalexin in the emergency department. The patient and his understood return indications and patient discharged with an empiric trial of expectant outpatient management. HPI The patient presents for a bug bite. The patient reports a sudden onset of a bug bite on the inner side of his left leg, which he noticed late last night after using the bathroom. He has no history of diabetes, smoking, or daily alcohol consumption. He is not experiencing any systemic symptoms such as fever, chills, nausea, vomiting, or abdominal pain. He has no history of similar sores or abscesses and has not been on antibiotics recently. He is not aware of anyone else in his vicinity having been bitten and has not experienced any other bites himself. He is not currently on any regular medication, although he was prescribed a cholesterol medication, which he has not been taking. Denies history of recurrent abscesses. Exam General: Well-appearing in no acute distress speaking in complete sentences. Head: Normocephalic, atraumatic. Eye: Extraocular eye movements intact. No conjunctival injection. No scleral icterus. Ear, nose, mouth, throat: Grossly normal inspection. Normal voice, handling secretions normally. Neck: Trachea midline. Cardiovascular: Well-perfused distal extremities. Respiratory: Nonlabored respiration. Gastrointestinal: Nondistended abdomen. Musculoskeletal: No edema. Moving all 4 extremities spontaneously. Skin: On the proximal aspect of the left inner thigh there is an approximately 5 x 3 cm erythematous and warm area. No significant fluctuance. No central pustule. No satellite lesions. No palpable cords in left lower extremity. Left foot warm well-perfused intact distal PT DP pulses. Neurologic: Alert and appropriate, no apparent acute deficits. Psychiatric: Mood and manner are appropriate. Grooming and personal hygiene are appropriate. Related Data Home Medications ?Medication ?Instructions ?Recorded ?Confirmed cephalexin 500 mg capsule 500 mg PO QID 5 days #20 cap s 06/23/25 Previous Rx's ?Medication ?Instructions ?Recorded cephalexin 500 mg capsule 500 mg PO QID 5 days #20 cap s 06/23/25 Allergies Allergy/AdvReac Type Severity Reaction Status Date / Time No Known Allergies Allergy Unverified 06/23/25 18:35 General Stated Complaint: Cellulitis MIKAELA: 4 Course Vital Signs Vital signs: Vital Signs Temperature 36.1 C L 06/23/25 18:32 Pulse 77 06/23/25 18:32 Respiratory Rate 18 06/23/25 18:32 Blood Pressure 130/70 06/23/25 18:32 Pulse Oximetry 98 06/23/25 18:32 Temperature 36.1 C L 06/23/25 18:32 Temperature Source Tympanic 06/23/25 18:32 Pulse 77 06/23/25 18:32 Respiratory Rate 18 06/23/25 18:32 Blood Pressure 130/70 06/23/25 18:32 Pulse Oximetry 98 06/23/25 18:32 Oxygen Delivery Method Room Air 06/23/25 18:32 Oxygen Flow Rate 0 06/23/25 18:32 Pain Level 3 06/23/25 18:32 Procedure Abscess Drainage Provider that performed the procedure: Aquilino Urias [facility] All Active Problems (Updated 06/23/25 @ 19:11 by Aquilino Urias MD) Cellulitis of left leg (Acute) Tick bite (Acute) Cervical spinal cord compression (Acute) Discharge planning issues (Acute) DVT prophylaxis (Acute) Myelopathy (Acute) Numbness (Acute) Paresthesia (Acute) Medical History Smoker Tear of left biceps muscle Surgical History S/P arthroscopic knee surgery S/P myringotomy with insertion of tube S/P tonsillectomy S/P vasectomy Social History Smoking/Tobacco Use Status: Former Tobacco Use Smoking risk assessment performed?: Yes Alcohol Intake: current Alcohol Intake frequency: a few times a week Drug use: Daily Substance use type: marijuana Household members: spouse current occupation: [employer] Do you feel safe at home: Yes Do you feel safe in your relationship?: Yes POCUS Exam (ED) Limited Soft Tissue Exam DATE OF EXAM: 06/23/25 TIME OF EXAM: 18:50 PROVIDER THAT PERFORMED THE STUDY: Aquilino Urias IS THIS A REPEAT EXAM DURING THIS ENCOUNTER: No LOCATION OF EXAM: Lower extremity/left REASON FOR EXAM: Redness Exam Complete DIFFERENTIAL DIAGNOSES: Cobblestoning. No signs of abscess.
[2025-06-23 18:53] VITALS: BP 130/70; PULSE 77; RESP 18; TEMP 36.1; O2SAT 98
[2025-06-23] MEDS: Cephalexin 500 MG CAP PO (19:22)
== END 2025-06-23 19:24 | disposition home or self-care (01) ==
PROVIDERS: Emergency Provider Emergency Medicine; PCP Internal Medicine
DX: L03.116 Cellulitis of left lower limb (principal); Z87.891 Personal history of nicotine dependence
CPT/HCPCS: 76882; 99284; 99283

== ENCOUNTER 2025-06-24 18:34 | Emergency (ER) | payer BC, SELFPAY ==
[2025-06-24 18:36] VITALS: BP 141/73; PULSE 76; RESP 20; TEMP 36.9; O2SAT 93
--- NOTE | 2025-06-24 18:54 | ED.GENADUL_ITS ---
Discharge Plan Disposition Patient Disposition: Home Condition: Stable Discharge Details Clinical Impression: Cellulitis of left thigh Primary Care Provider: Valentina Mojica ED Provider: Nato Umana Home Meds and New Rx's Prescriptions: New doxycycline hyclate 100 mg capsule 100 mg PO BID 10 Days Qty: 20 0RF Continued cephalexin 500 mg capsule 500 mg PO QID 5 Days Qty: 20 0RF Discharge Instructions Instructions: Doxycycline, Cellulitis (Skin Infection), Adult ED Additional Instructions: You were seen in the emergency department for your worsening cellulitis of left thigh, there is no central abscess or fluctuant swelling or the of incision and drainage or needle aspiration at this time. Keep taking your cephalexin but I am starting on doxycycline to cover for MRSA as well. Perform hot compresses as we discussed twice a day for 10 minutes each time, monitor your condition closely for red streaking up the leg, fever, nausea or weakness and return if there is any severe increase in swelling with fluctuance like you are pressing up Pepple for possible drainage. Referrals: Valentina Mojica [Primary Care Provider, Medicine] Discharge Data Discharge Date/Time-TO BE ENTERED AT DEPARTURE: 06/24/25 19:17 HPI General Date/Time Provider Initiated Documentation: 06/24/25 18:54 . HPI Narrative: 55 year-old male presents to ED today by POV/ambulating with a chief complaint of recheck of cellulitis in upper thigh/groin, seen yesterday and put on antibiotics, states worse this morning with onset a couple days ago. Quality described as swelling to the medial proximal thigh of his L left, pain and abad erythema, no radiation to large fluctuant area, drainage of pus, red streaking outward, nausea, fever. Severity is described as severe when palpated. Pall iating factors include has taken 3 doses of antibiotics. Provoking factors include nothing specific. Events leading up to the incident/Associated Symptoms: Patient had the area U/S'd yesterday in POCUS exam and showed no abscess. Patient not anticoagulated. Related Data Home Medications ?Medication ?Instructions ?Recorded ?Confirmed cephalexin 500 mg capsule 500 mg PO QID 5 days #20 cap s 06/23/25 06/24/25 doxycycline hyclate 100 mg capsule 100 mg PO BID 10 da ys #20 caps 06/24/25 Previous Rx's ?Medication ?Instructions ?Recorded cephalexin 500 mg capsule 500 mg PO QID 5 days #20 cap s 06/23/25 doxycycline hyclate 100 mg capsule 100 mg PO BID 10 da ys #20 caps 06/24/25 Allergies Allergy/AdvReac Type Severity Reaction Status Date / Time No Known Allergies Allergy Verified 06/24/25 18:40 General Stated Complaint: Recheck MIKAELA: 4 Review of Systems All systems reviewed & are unremarkable except as noted in HPI and below Exam Narrative Exam Narrative: GENERAL APPEARANCE: Well-nourished, non-toxic, awake and alert, atraumatic, no acute distress. SKIN: Warm, pink, dry, large 8 x 8 area of abad erythema in the medial aspect of the proximal left thigh with no central fluctuant area coming to a head for incision and drainage or aspiration, has no red streaking outward from any area HEAD: Normocephalic, atraumatic, normal hair distribution for gender/age. EYES: Normal conjunctiva, no exudates on lids/lashes. ENT: Nares patent, no circumoral cyanosis, no facial swelling NECK: Supple, trachea midline, painless cervical ROM. LUNGS/CHEST: Non-labored respirations, normal A/P diameter, symmetrical expansion, no chest wall deformity HEART (CV/PV): No peripheral edema, no JVD. ABDOMEN: Soft, non-distended, no guarding. MSK: Normal ROM, no swelling/deformity to bilateral UEs or LEs, moving all extremities without weakness, no cyanosis, spine midline without tenderness, normal curvature. NEURO: Mental Status AAOx4 - alert to person, place, time, events No facial droop, no forehead involvement. Motor: No focal weakness - strength 5/5 in bilateral UEs and LEs, proximal and distal, symmetric. Sensory: sensation intact to light touch globally. Gait normal: patient ambulated without ataxia into ED room. PSYCH: euthymic, cooperative, pleasant, appropriate speech Course Vital Signs Vital signs: Vital Signs Temperature 36.9 C 06/24/25 18:36 Pulse 76 06/24/25 18:36 Respiratory Rate 20 06/24/25 18:36 Blood Pressure 141/73 H 06/24/25 18:36 Pulse Oximetry 93 06/24/25 18:36 Temperature 36.9 C 06/24/25 18:36 Temperature Source Oral 06/24/25 18:36 Pulse 76 06/24/25 18:36 Respiratory Rate 20 06/24/25 18:36 Blood Pressure 141/73 H 06/24/25 18:36 Blood Pressure Position Sitting 06/24/25 18:36 Pulse Oximetry 93 06/24/25 18:36 Oxygen Delivery Method Room Air 06/24/25 18:36 Oxygen Flow Rate 0 06/24/25 18:36 Medical Decision Making This dictation utilizes [id number] dictation software and may contain unedited grammatical errors. 55 year-old male presents to ED today by POV/ambulating with a chief complaint of recheck of cellulitis in upper thigh/groin, seen yesterday and put on antibiotics, states worse this morning with onset a couple days ago. Quality described as swelling to the medial proximal thigh of his L left, pain and abad erythema, no radiation to large fluctuant area, drainage of pus, red streaking outward, nausea, fever. Severity is described as severe when palpated. Palliating factors include has taken 3 doses of antibiotics. Provoking factors include nothing specific. Events leading up to the incident/Associated Symptoms: Patient had the area U/S'd yesterday in POCUS exam and showed no abscess. Patients' medical history: Cellulitis. Family and social history: Noncontributory. Pertinent exam findings / vital signs include large 8 x 8 area of abad erythema in the medial aspect of the proximal left thigh with no central fluctuant area coming to a head for incision and drainage or aspiration, has no red streaking outward from any area, benign cardiopulmonary exam, stable vitals, nontoxic and afebrile. Differential / pathologies of concern include cellulitis, phlegmon. Diagnostic studies of: - None. Interventions of: - Added doxycycline to his antibiotic regimen. ED Course/Assessment/Plan: 55-year-old male presents after being seen yesterday and started on Keflex for a cellulitis of his right thigh, he had a POCUS exam yesterday in ER which showed no drainable abscess, he has indurated area without lymphadenitis spreading outward but has increased swelling this morning, I am adding doxycycline to cover a broader spectrum of bacteria for cellulitis with strict return criteria for any worsening despite this treatment for possible incision and drainage at that time and further laboratory workup. Findings not consistent with lymphadenitis, abscess. Disposition of cellulitis of left thigh. Patient verbalized understanding of the plan and return to ED criteria and engaged in shared decision making. Medical Records Medical records reviewed: Yes I reviewed the patient's medical records. PFSH All Active Problems (Updated 06/24/25 @ 19:03 by MARINE Johnson) Cellulitis of left thigh (Acute) Cellulitis of left leg (Acute) Tick bite (Acute) Cervical spinal cord compression (Acute) Discharge planning issues (Acute) DVT prophylaxis (Acute) Myelopathy (Acute) Numbness (Acute) Paresthesia (Acute) Medical History Smoker Tear of left biceps muscle Surgical History S/P arthroscopic knee surgery S/P myringotomy with insertion of tube S/P tonsillectomy S/P vasectomy Social History Smoking/Tobacco Use Status: Former Tobacco Use Smoking risk assessment performed?: Yes Alcohol Intake: current Alcohol Intake frequency: a few times a week Drug use: Daily Substance use type: marijuana Household members: spouse Housing: house current occupation: [employer] Do you feel safe at home: Yes Do you feel safe in your relationship?: Yes
[2025-06-24] MEDS: Doxycycline Hyclate 100 MG CAP PO (19:14)
== END 2025-06-24 19:17 | disposition home or self-care (01) ==
PROVIDERS: Emergency Provider Physician Assistant; PCP Internal Medicine
DX: L03.116 Cellulitis of left lower limb (principal)
CPT/HCPCS: 99283 ×2